=== PATIENT | female | born 1945 | race Caucasian/White ===

== ENCOUNTER → 2017-01-26 | Outpatient (CLI) | payer MEDICARE, OTHER ==
[~2017-01-26] MED LIST: ALDACTONE25 MG PO; AMITIZA24 MCG PO; CALCIUM + D SO1 EACH PO; CLARITIN10 MG PO; FOLIC ACID1 MG PO; ISOSORBIDE MONO30 MG PO; KEPPRA1000 MG PO; LASIX20 MG PO; NITROSTAT0.4 MG SL; PERCOCET 10-321 EACH PO; POTASSIUM CHLO10 ME1 PO; PRILOSEC OTC20 MG PO; SOTALOL80 MG PO; TEGRETOL XR100 MG PO
[2017-01-26 10:51] LABS: HEMOGLOBIN 12.1 gm/dl (12.3-15.3); RED BLOOD COUNT 3.79 M/UL (4.00-5.10); WHITE BLOOD COUNT 4.6 K/UL (4.5-11.0)
[2017-01-26 11:11] LABS: BUN/CREATININE RATIO 40 (0-10)
== END ==
LOC: OPSV2 09:58 → EDBD 10:00
PROVIDERS: Orthopaedic Surgery
DX: Z01.810 Encounter for preprocedural cardiovascular examination (principal); Z01.812 Encounter for preprocedural laboratory examination; M65.332 Trigger finger, left middle finger; I50.9 Heart failure, unspecified; R56.9 Unspecified convulsions
CPT/HCPCS: 36415; 80048; 85027; 93005

== ENCOUNTER → 2017-02-02 | Day surgery (SDC) | payer MEDICARE, OTHER ==
[~2017-02-02] VITALS: Ht 160 cm; Wt 56.2 kg
== END | disposition home or self-care (01) ==
LOC: OR 11:35 → EDBD 12:30 → OR 16:00
PROVIDERS: Orthopaedic Surgery
PROC: 0LN80ZZ Release Left Hand Tendon, Open Approach (ICD-10-PCS; principal; 2017-02-02 16:00)
DX: M65.332 Trigger finger, left middle finger (principal); M19.90 Unspecified osteoarthritis, unspecified site; M81.0 Age-related osteoporosis without current pathological fracture; I48.91 Unspecified atrial fibrillation; R56.9 Unspecified convulsions; I50.9 Heart failure, unspecified; Z90.49 Acquired absence of other specified parts of digestive tract; Z79.01 Long term (current) use of anticoagulants; Z79.899 Other long term (current) drug therapy; Z95.0 Presence of cardiac pacemaker; Z95.5 Presence of coronary angioplasty implant and graft; Z98.818 Other dental procedure status
CPT/HCPCS: J0690; J1100; J2250; J2405; J2765; J3010; J7120

== ENCOUNTER → 2020-09-28 | Outpatient (CLI) | payer MEDICARE, OTHER ==
[~2020-09-28] MED LIST changes: +ALBUTEROL1.25 MG/3 INH; +CALCIUM WITH V1 EAC1 PO; +CEFUROXIME500 MG PO; +CIPRO500 MG PO; +FOLIC ACID 1 MG1 MG PO; +IBU400 MG PO; +IMDUR ER TAB 3030 MG PO; +K-DUR TAB 10 M10 MEQ PO; +KEPPRA500 MG PO; +LOPRESSOR 25 MG25 MG PO; +PERCOCET 5/325 T1 EA PO; +SENNA PLUS TAB1 EACH PO; +SOTALOL120 MG PO; +TEGRETOL 200 M200 MG PO; +VISTARIL25 MG PO; +VITAMIN B; +XARELTO20 MG PO; +ZITHROMAX250 MG PO; +ZOLOFT25 MG PO
== END ==
LOC: US 13:24 → CT 14:30
DX: Z01.818 Encounter for other preprocedural examination (principal); I71.2 Thoracic aortic aneurysm, without rupture; I65.23 Occlusion and stenosis of bilateral carotid arteries; I77.819 Aortic ectasia, unspecified site
CPT/HCPCS: 36415; 71275; 82565; 84520; 93880; Q9967

== ENCOUNTER 2021-04-25 13:41 | Emergency (ER) | payer MEDICARE, OTHER ==
[2021-04-25 15:51] LABS: HEMOGLOBIN 12.2 gm/dl (12.3-15.3); RED BLOOD COUNT 3.67 M/UL (4.00-5.10); WHITE BLOOD COUNT 5.2 K/UL (4.5-11.0)
[2021-04-25 16:12] LABS: BUN/CREATININE RATIO 22 (0-10)
[2021-04-25] MEDS ORDERED: ZOFRAN ODT 4 MG4 MG SL (18:53)
[2021-04-25] MEDS ORDERED: AUGMENTIN 875-1 EACH PO (18:53)
== END 2021-04-25 19:50 | disposition home or self-care (01) ==
LOC: ER1 13:41
PROVIDERS: Emergency Medicine
DX: K52.9 Noninfective gastroenteritis and colitis, unspecified (principal); I48.91 Unspecified atrial fibrillation; I50.9 Heart failure, unspecified; G40.909 Epilepsy, unspecified, not intractable, without status epilepticus
CPT/HCPCS: 80053; 81001; 83880; 85025; 87086; 99284; Q9967

== ENCOUNTER → 2022-02-14 | Outpatient (CLI) | payer MEDICARE, OTHER ==
[~2022-02-14] MED LIST changes: +AUGMENTIN 875-1 EACH PO; +ZOFRAN ODT 4 MG4 MG SL
[2022-02-14 14:44] LABS: BUN/CREATININE RATIO 31 (0-10)
== END ==
LOC: CT 14:00
PROVIDERS: Physician Assistant
DX: I25.10 Atherosclerotic heart disease of native coronary artery without angina pectoris (principal); I11.0 Hypertensive heart disease with heart failure; I50.30 Unspecified diastolic (congestive) heart failure; I71.2 Thoracic aortic aneurysm, without rupture; I48.92 Unspecified atrial flutter; R60.9 Edema, unspecified; E78.00 Pure hypercholesterolemia, unspecified
CPT/HCPCS: 36415; 71275; 80048; Q9967

== ENCOUNTER 2022-02-26 17:28 | Emergency (ER) | payer MEDICARE, OTHER ==
[2022-02-26 17:47] LABS: HEMOGLOBIN 11.6 gm/dl (12.3-15.3); RED BLOOD COUNT 3.54 M/UL (4.00-5.10); WHITE BLOOD COUNT 5.7 K/UL (4.5-11.0)
[2022-02-26 18:09] LABS: BUN/CREATININE RATIO 34 (0-10)
== END 2022-02-26 22:07 | disposition home or self-care (01) ==
LOC: ER1 17:28
PROVIDERS: Family Medicine
DX: R07.9 Chest pain, unspecified (principal); E87.6 Hypokalemia; I11.9 Hypertensive heart disease without heart failure; I48.91 Unspecified atrial fibrillation; Z95.0 Presence of cardiac pacemaker; Z95.5 Presence of coronary angioplasty implant and graft; Z88.1 Allergy status to other antibiotic agents
CPT/HCPCS: 71045; 80053; 82550; 82553; 84484; 85025; 99285; Q9967

== ENCOUNTER 2022-03-10 12:13 | Emergency (ER) | payer MEDICARE, OTHER ==
[2022-03-10 13:15] LABS: HEMOGLOBIN 10.4 gm/dl (12.3-15.3); RED BLOOD COUNT 3.21 M/UL (4.00-5.10); WHITE BLOOD COUNT 3.8 K/UL (4.5-11.0)
[2022-03-10 13:42] LABS: BUN/CREATININE RATIO 30 (0-10)
== END 2022-03-10 14:30 | disposition home or self-care (01) ==
LOC: ER1 12:13
PROVIDERS: Emergency Medicine
DX: K64.4 Residual hemorrhoidal skin tags (principal)
CPT/HCPCS: 80048; 82272; 83735; 85025; 85610; 85730; 99283

== ENCOUNTER 2022-04-27 19:30 | Inpatient (IN) | payer MEDICARE, OTHER ==
[~2022-04-27] VITALS: Ht 160 cm; Wt 66.4 kg
[~2022-04-27 19:30] MED LIST changes: -K-DUR TAB 10 M10 MEQ PO; -LOPRESSOR 25 MG25 MG PO; +METOPROLOL SUC100 MG PO; +OMEPRAZOLE40 MG PO; +POTASSIUM CHLO20 ME2 PO
[2022-04-27 20:45] LABS: HEMOGLOBIN 11.3 gm/dl (12.3-15.3); RED BLOOD COUNT 3.4 M/UL (4.00-5.10); WHITE BLOOD COUNT 12.5 K/UL (4.5-11.0)
[2022-04-27 21:25] LABS: BUN/CREATININE RATIO 28 (0-10)
[2022-04-28] MEDS ORDERED: BUMETANIDE2 MG PO (10:53)
[2022-04-28] MEDS ORDERED: LEVOCETIRIZINE D5 MG PO (10:54)
[2022-04-28] MEDS ORDERED: PERCOCET 10-321 EACH PO (10:54)
[2022-04-28] MEDS ORDERED: CALCIUM CARBON600 MG PO (10:55)
[2022-04-29 03:08] LABS: HEMOGLOBIN 9.9 gm/dl (12.3-15.3)
[2022-04-29 03:21] LABS: RED BLOOD COUNT 2.96 M/UL (4.00-5.10); WHITE BLOOD COUNT 5.1 K/UL (4.5-11.0)
[2022-04-29 03:35] LABS: BUN/CREATININE RATIO 24 (0-10)
[2022-04-29] MEDS ORDERED: OMNICEF 300 MG300 MG PO (08:53)
[2022-04-29 12:13] LABS: KPC-CARBAPENEM-RESISTANCE GENE Not Detected (Negative); STAPHYLOCOCCUS AUREUS Not Detected (Negative); STREP AGALACTIAE (GROUP B) Not Detected (Negative); STREPTOCOCCUS Not Detected (Negative); vanA/B (VANCOMYCIN RESIST GENE Not Detected (Negative)
[2022-04-29 12:14] LABS: CANDIDA ALBICANS Not Detected (Negative); CANDIDA KRUSEI Not Detected (Negative); CANDIDA TROPICALIS Not Detected (Negative); ESCHERICHIA COLI Not Detected (Negative); HAEMOPHILUS INFLUENZAE Not Detected (Negative); KLEBSIELLA OXYTOCA Not Detected (Negative); KLEBSIELLA PNEUMONIAE Not Detected (Negative); PROTEUS Not Detected (Negative); PSEUDOMONAS AERUGINOSA Not Detected (Negative); SERRATIA MARCESANS Not Detected (Negative); STREP PYOGENES (GROUP A) Not Detected (Negative)
[2022-04-29 13:16] LABS: STAPHYLOCOCCUS DETECTED (Negative)
== END 2022-04-29 13:36 | disposition home or self-care (01) | DRG 193 ==
LOC: ER1 19:30 → M/S 23:49 → CDU 23:49 → M/S 04-28 01:38
PROVIDERS: Family Medicine; ADMIT Internal Medicine
PROC: B24BZZZ Ultrasonography of Heart with Aorta (ICD-10-PCS; principal; 2022-04-28)
DX: J18.9 Pneumonia, unspecified organism (principal); G93.41 Metabolic encephalopathy; G40.909 Epilepsy, unspecified, not intractable, without status epilepticus; Z20.822 Contact with and (suspected) exposure to COVID-19; I25.10 Atherosclerotic heart disease of native coronary artery without angina pectoris; G31.84 Mild cognitive impairment of uncertain or unknown etiology; I49.5 Sick sinus syndrome; I08.1 Rheumatic disorders of both mitral and tricuspid valves; I48.0 Paroxysmal atrial fibrillation; Z79.01 Long term (current) use of anticoagulants; K44.9 Diaphragmatic hernia without obstruction or gangrene; Z95.0 Presence of cardiac pacemaker; Z82.49 Family history of ischemic heart disease and other diseases of the circulatory system; Z88.1 Allergy status to other antibiotic agents; Z95.5 Presence of coronary angioplasty implant and graft
CPT/HCPCS: ECHO; 36415; 70450; 71045; 80048; 80053; 80156; 82550; 82553; 83605; 83735; 84100; 84484; 85025; 87040; 87077; 87150; 87186; 92526; 92610; 93005; 93306; 93880; 96374; 97161; 99285; G0378; J0456; J0696; J2543; J3475; J7030